=== PATIENT | female | born 1985 | race Two or more races ===

== ENCOUNTER 2024-06-18 00:15 | Inpatient (IN) | payer OTHER ==
[2024-06-17 23:25] VITALS: BP 108/71
[2024-06-18] VITALS (7 sets, daily range): BP systolic 94–108; BP diastolic 60–73; O2SAT 97
[~2024-06-18] VITALS: Ht 160 cm; Wt 59.0 kg
[2024-06-18] MEDS ORDERED: PRENATAL TABLE1 EAC1 (00:34)
[2024-06-18] MEDS ORDERED: RINGERS SOLUTION,LACTATED 1,000 ML IV SCH (00:45)
[2024-06-18] MEDS ORDERED: MAGNESIUM SULFATE IN WATER 500 ML IV SCH (08:45)
[2024-06-18] MEDS ORDERED: BETAMETHASONE ACETATE,SOD PHOS 30 MG/5 ML ML IM SCH (09:00)
[2024-06-18 10:37] LABS: HEMATOCRIT 33.4 % (36.0-45.00); HEMOGLOBIN 11.4 g/dL (12.0-15.00); MEAN CELL VOLUME 96.2 fL (80.00-100.00); MEAN CORPUSCULAR HEMOGLOBIN 32.8 pg (27.00-32.0); MEAN CORPUSCULAR HGB CONC 34.1 g/dl (32.0-36.0); PLATELET COUNT 194 K/uL (150-450); RED BLOOD COUNT 3.47 M/uL (4.00-6.00); RED CELL DISTRIBUTION WIDTH 14.2 % (11.5-14.5)
[2024-06-18 11:12] LABS: INR 0.94; PARTIAL THROMBOPLASTIN TIME 26.2 SECONDS (22.0-34.0); PROTHROMBIN TIME 10.3 SECONDS (9.0-11.5)
[2024-06-18 11:20] LABS: ALBUMIN 2.7 gm/dL (3.4-5.0); BILIRUBIN TOTAL 0.21 mg/dL (0.3-1.2); CALCIUM 8.7 mg/dL (8.5-10.1); CREATININE SERUM 0.32 mg/dL (0.55-1.02); GFR 233.65; GLOBULINA 3.3 G/DL (2.4-3.5); POTASSIUM 3.78 mEq/L (3.5-5.1)
[2024-06-19 03:25] VITALS: BP 94/60
[2024-06-19 07:17] VITALS: BP 108/72
[2024-06-19] MEDS ORDERED: NIFEDIPINE 30 MG TAB.SA.OSM PO SCH (09:00)
[2024-06-19 11:54] VITALS: BP 109/63
[2024-06-19 16:11] VITALS: BP 92/60
[2024-06-19] MEDS ORDERED: hydrOXYzine PAMOATE 25 MG CAPSULE PO SCH (21:00)
[2024-06-20 00:36] VITALS: BP 92/58
[2024-06-20] MEDS ORDERED: MAGNESIUM SULFATE IN WATER 100 ML IV ONE (09:00)
[2024-06-20] MEDS ORDERED: LABETALOL HCL 100 MG/20 ML ML IV PUSH ONE (09:00)
[2024-06-20 09:03] VITALS: BP 91/58
== END 2024-06-20 13:24 | disposition home or self-care (01) | DRG 833 ==
LOC: OBS/DEL 00:15 → LDR 09:01 → OB/GYN 06-19 10:07
PROVIDERS: ADMIT Obstetrics & Gynecology; ATTEND Obstetrics & Gynecology
PROC: 4A1HXCZ Monitoring of Products of Conception, Cardiac Rate, External Approach (ICD-10-PCS; principal; 2024-06-18)
PROC: BY4CZZZ Ultrasonography of Second Trimester, Single Fetus (ICD-10-PCS; 2024-06-18)
PROC: BU4CZZZ Ultrasonography of Uterus and Ovaries (ICD-10-PCS; 2024-06-18)
DX: O46.8X2 Other antepartum hemorrhage, second trimester (principal); Z3A.27 27 weeks gestation of pregnancy

== ENCOUNTER 2024-06-21 12:09 | Outpatient (CLI) | payer OTHER ==
[~2024-06-21 12:09] MED LIST: PRENATAL TABLE1 EAC1
== END 2024-06-21 14:09 | disposition home or self-care (01) ==
LOC: NST 12:09
PROVIDERS: ATTEND Obstetrics & Gynecology Maternal & Fetal Medicine
DX: Z34.82 Encounter for supervision of other normal pregnancy, second trimester (principal)

== ENCOUNTER 2024-09-11 13:30 | Inpatient (IN) | payer OTHER ==
[~2024-09-11] VITALS: Ht 160 cm; Wt 68.9 kg
[2024-09-14] VITALS (9 sets, daily range): BP systolic 115–218; BP diastolic 75–110
[2024-09-14] MEDS ORDERED: RINGERS SOLUTION,LACTATED 1,000 ML IV SCH (05:45)
[2024-09-14] MEDS ORDERED: MORPHINE SULFATE 4 MG/ML CARTRIDGE IV PRN ×2 (05:45→11:15)
[2024-09-14] MEDS ORDERED: hydrALAZINE HCL 20 MG VIAL ONE (06:06)
[2024-09-14] MEDS ORDERED: MAGNESIUM SULFATE IN WATER 4 GM/100 ML PIGGYBACK IV ONE (06:07)
[2024-09-14] MEDS ORDERED: MAGNESIUM SULFATE IN WATER 100 ML IV ONE (06:45)
[2024-09-14] MEDS ORDERED: MAGNESIUM SULFATE IN WATER 500 ML IV SCH (06:45)
[2024-09-14] MEDS ORDERED: hydrALAZINE HCL 20 MG VIAL IV ONE (06:45)
[2024-09-14] MEDS ORDERED: MAGNESIUM SULFATE IN WATER 0.04 GM/ML IV.SOLN IV ONE (06:45)
[2024-09-14 08:02] LABS: BASO % 0.2 % (0.1-1.2); HEMATOCRIT 40.5 % (34.1-44.9); HEMOGLOBIN 13.5 g/dL (11.2-15.7); LYMPH # 1.34 (1.18-3.74); LYMPH % 13.2 % (19.3-53.1); MEAN CORPUSCULAR HEMOGLOBIN 31.2 pg (25.6-32.2); MONO # 0.53 (0.24-0.82); MONO % 5.2 % (4.7-12.5); NEUT # 8.16 (1.56-6.13); NEUT % 80.7 % (34.0-71.1); PLATELET COUNT 169 K/uL (163-369); RED BLOOD COUNT 4.33 M/uL (3.93-5.22); RED CELL DISTRIBUTION WIDTH 15.1 % (11.6-14.4)
[2024-09-14 08:08] LABS: BILIRUBIN TOTAL 0.2 mg/dL (0.3-1.2); CALCIUM 9.5 mg/dL (8.5-10.1); CREATININE SERUM 0.56 mg/dL (0.55-1.02); GFR 122.49; GLOBULINA 3.9 G/DL (2.4-3.5); INR < 0.93; PARTIAL THROMBOPLASTIN TIME 25.4 SECONDS (22.0-34.0); POTASSIUM 4.04 mEq/L (3.5-5.1); PROTHROMBIN TIME 9.9 SECONDS (9.0-11.5); TOTAL PROTEIN 6.9 gm/dL (6.4-8.2)
[2024-09-14] MEDS ORDERED: LIDOCAINE HCL 1% 10ML VIAL ONE (09:15)
[2024-09-14] MEDS ORDERED: ERYTHROMYCIN BASE OPHT 1GM EACH TUBE OP ONE ×2 (09:15→11:45)
[2024-09-14] MEDS ORDERED: OXYTOCIN 20 UNITS/1000ML RL PIGGYBAG IV ONE ×2 (09:15→13:55)
[2024-09-14] MEDS ORDERED: CHLORHEXIDINE GLUCONATE 120 ML BOTTLE TOP ONE ×2 (09:15→11:45)
[2024-09-14] MEDS ORDERED: NALOXONE HCL 0.4 MG/ML AMPUL ONE (09:36)
[2024-09-14] MEDS ORDERED: OXYTOCIN 10 UNITS/ML VIAL ONE (10:12)
[2024-09-14] MEDS ORDERED: OXYTOCIN 1,000 ML IV SCH (11:00)
[2024-09-14] MEDS ORDERED: OxyCODONE HCL 5 MG TABLET (ROXICODONE) PO PRN (11:00)
[2024-09-14] MEDS ORDERED: IBUprofen 400 MG TABLET PO PRN (11:00)
[2024-09-14] MEDS ORDERED: LABETALOL HCL 100 MG TABLET PO SCH (11:06)
[2024-09-14] MEDS ORDERED: ACETAMINOPHEN 325 MG TABLET PO PRN (11:15)
[2024-09-14] MEDS ORDERED: NALOXONE HCL 0.4 MG/ML AMPUL IV ONE (11:45)
[2024-09-14] MEDS ORDERED: NALOXONE HCL 0.4 MG/ML AMPUL IM ONE (11:45)
[2024-09-14] MEDS ORDERED: LIDOCAINE HCL 1% 10ML VIAL IJ ONE (11:45)
[2024-09-14] MEDS ORDERED: IBUprofen 400 MG TABLET PO ONE (15:26)
[2024-09-15 09:05] VITALS: BP 125/80
[2024-09-15 10:05] LABS: BASO % 0.2 % (0.1-1.2); LYMPH # 1.21 (1.18-3.74); LYMPH % 8.8 % (19.3-53.1); MEAN CORPUSCULAR HEMOGLOBIN 30.7 pg (25.6-32.2); MONO # 0.72 (0.24-0.82); MONO % 5.3 % (4.7-12.5); NEUT # 11.61 (1.56-6.13); NEUT % 84.8 % (34.0-71.1); RED CELL DISTRIBUTION WIDTH 15.9 % (11.6-14.4)
[2024-09-15 10:10] LABS: HEMATOCRIT 24.9 % (34.1-44.9)
[2024-09-15 10:11] LABS: PLATELET COUNT 33 K/uL (163-369)
[2024-09-15 10:12] LABS: HEMOGLOBIN 8.3 g/dL (11.2-15.7)
[2024-09-15] MEDS ORDERED: OXYTOCIN 2,000 ML IV SCH (11:00)
[2024-09-15] MEDS ORDERED: METHYLPREDNISOLONE SOD SUCC 40 MG VIAL IV NR (11:45)
[2024-09-15] MEDS ORDERED: SOD FERRIC GLUC COMPLX/SUCROSE 62.5 MG/5 ML AMPUL IV SCH (12:00)
[2024-09-15 14:54] LABS: FIBRINOGEN 334 mg/dL (187.0-446.0); INR < 0.93; PARTIAL THROMBOPLASTIN TIME 24.9 SECONDS (22.0-34.0); PROTHROMBIN TIME 9.9 SECONDS (9.0-11.5)
[2024-09-15 14:55] LABS: D DIMER > 35.20 MG/L
[2024-09-15 15:16] LABS: ALBUMIN 2.3 gm/dL (3.4-5.0); BILIRUBIN TOTAL 0.53 mg/dL (0.3-1.2); CALCIUM 7.8 mg/dL (8.5-10.1); CREATININE SERUM 0.74 mg/dL (0.55-1.02); GFR 88.8; POTASSIUM 4.22 mEq/L (3.5-5.1); TOTAL PROTEIN 5.3 gm/dL (6.4-8.2)
[2024-09-15] MEDS ORDERED: METHYLPREDNISOLONE SOD SUCC 40 MG VIAL IV SCH (18:00)
[2024-09-15 18:06] VITALS: BP 130/80
[2024-09-15 21:00] VITALS: BP 133/81
[2024-09-15 23:46] VITALS: BP 135/86
[2024-09-16 09:04] VITALS: BP 130/78; O2SAT 97
[2024-09-16 16:00] VITALS: BP 137/76; O2SAT 97
[2024-09-16] MEDS ORDERED: FAMOtidine 20 MG TABLET PO SCH (17:00)
[2024-09-16 18:54] LABS: BASO % 0.2 % (0.1-1.2); LYMPH # 0.93 (1.18-3.74); LYMPH % 5.6 % (19.3-53.1); MEAN CORPUSCULAR HEMOGLOBIN 30.6 pg (25.6-32.2); NEUT # 14.49 (1.56-6.13); NEUT % 87.5 % (34.0-71.1); RED BLOOD COUNT 2.68 M/uL (3.93-5.22); RED CELL DISTRIBUTION WIDTH 17.5 % (11.6-14.4)
[2024-09-16 19:00] LABS: HEMATOCRIT 24.7 % (34.1-44.9); HEMOGLOBIN 8.2 g/dL (11.2-15.7); PLATELET COUNT 56 K/uL (163-369)
[2024-09-16 19:10] LABS: INR < 0.93; PARTIAL THROMBOPLASTIN TIME 26.2 SECONDS (22.0-34.0); PROTHROMBIN TIME 10.2 SECONDS (9.0-11.5)
[2024-09-16] MEDS ORDERED: hydrOXYzine PAMOATE 50 MG CAPSULE PO PRN (20:00)
[2024-09-16 20:21] VITALS: BP 160/80
[2024-09-16] MEDS ORDERED: SIMETHICONE 125 MG CAPSULE PO SCH (21:00)
[2024-09-16] MEDS ORDERED: DEXAMETHASONE SODIUM PHOSPHATE 4 MG/ML VIAL IV SCH (21:19)
[2024-09-17] VITALS (7 sets, daily range): BP systolic 116–165; BP diastolic 60–84; O2SAT 85–100
[2024-09-17] MEDS ORDERED: hydrALAZINE HCL 20 MG VIAL IV STA (01:35)
[2024-09-17] MEDS ORDERED: FUROsemide 20 MG/2 ML VIAL IV STA (02:00)
[2024-09-17] MEDS ORDERED: MAGNESIUM SULFATE IN WATER 500 ML IV SCH (03:15)
[2024-09-17] MEDS ORDERED: MAGNESIUM SULFATE IN WATER 100 ML IV ONE (03:15)
[2024-09-17 06:51] LABS: BASO % 0.2 % (0.1-1.2); LYMPH # 1.16 (1.18-3.74); MEAN CORPUSCULAR HEMOGLOBIN 30.4 pg (25.6-32.2); MONO # 1.22 (0.24-0.82); MONO % 6.3 % (4.7-12.5); NEUT # 15.55 (1.56-6.13); NEUT % 79.7 % (34.0-71.1); RED BLOOD COUNT 2.83 M/uL (3.93-5.22); RED CELL DISTRIBUTION WIDTH 17.2 % (11.6-14.4)
[2024-09-17 07:50] LABS: ALBUMIN 2.9 gm/dL (3.4-5.0); BILIRUBIN TOTAL 0.39 mg/dL (0.3-1.2); CALCIUM 8.8 mg/dL (8.5-10.1); CREATININE SERUM 0.63 mg/dL (0.55-1.02); GFR 106.92; GLOBULINA 3.4 G/DL (2.4-3.5); MAGNESIUM 4.3 mg/dL (1.8-2.4); POTASSIUM 3.96 mEq/L (3.5-5.1); TOTAL PROTEIN 6.3 gm/dL (6.4-8.2)
[2024-09-17 08:23] LABS: HEMATOCRIT 25.5 % (34.1-44.9)
[2024-09-17 08:24] LABS: HEMOGLOBIN 8.6 g/dL (11.2-15.7); PLATELET COUNT 71 K/uL (163-369)
[2024-09-17] MEDS ORDERED: PANTOPRAZOLE SODIUM 40 MG/VIAL VIAL IV SCH (17:00)
[2024-09-17] MEDS ORDERED: FUROsemide 20 MG/2 ML VIAL IV SCH (17:00)
[2024-09-17] MEDS ORDERED: POLYETHYLENE GLYCOL 3350 17 GM BLIST.PACK PO SCH (17:00)
[2024-09-17 18:17] LABS: BASO % 0.3 % (0.1-1.2); LYMPH # 1.02 (1.18-3.74); LYMPH % 5.5 % (19.3-53.1); MEAN CORPUSCULAR HEMOGLOBIN 30.5 pg (25.6-32.2); MONO # 1.09 (0.24-0.82); MONO % 5.9 % (4.7-12.5); NEUT # 14.91 (1.56-6.13); NEUT % 80.8 % (34.0-71.1); RED BLOOD COUNT 2.82 M/uL (3.93-5.22); RED CELL DISTRIBUTION WIDTH 17.2 % (11.6-14.4)
[2024-09-17 19:19] LABS: HEMATOCRIT 25.9 % (34.1-44.9); PLATELET COUNT 90 K/uL (163-369)
[2024-09-17 19:21] LABS: HEMOGLOBIN 8.6 g/dL (11.2-15.7)
[2024-09-18 06:15] VITALS: BP 148/84; O2SAT 99
[2024-09-18 07:52] VITALS: BP 142/85; O2SAT 100
[2024-09-18] MEDS ORDERED: ACETAMINOPHEN 500 MG GEL..CAP PO ONE (09:20)
[2024-09-18] MEDS ORDERED: ACETAMINOPHEN 500 MG GEL..CAP PO PRN (09:45)
[2024-09-18 11:11] LABS: BASO % 0.5 % (0.1-1.2); EOS # 0.01 (0.04-0.54); EOS % 0.1 % (0.7-7.0); HEMATOCRIT 30.8 % (34.1-44.9); HEMOGLOBIN 10.1 g/dL (11.2-15.7); LYMPH # 1.88 (1.18-3.74); LYMPH % 9.8 % (19.3-53.1); MEAN CORPUSCULAR HEMOGLOBIN 30.1 pg (25.6-32.2); MONO # 1.44 (0.24-0.82); MONO % 7.5 % (4.7-12.5); NEUT # 14.09 (1.56-6.13); NEUT % 73.4 % (34.0-71.1); PLATELET COUNT 147 K/uL (163-369); RED BLOOD COUNT 3.36 M/uL (3.93-5.22); RED CELL DISTRIBUTION WIDTH 17.2 % (11.6-14.4)
[2024-09-18 11:22] LABS: PH,URINE 7.5 (5.0-8.0); URINE APPEARANCE Cloudy; URINE BILIRRUBIN Negative (NEGATIVE); URINE BLOOD Large; URINE COLOR Orange; URINE GLUCOSE Negative (NEGATIVE); URINE KETONE Negative (NEGATIVE); URINE LEUKOCYTE Moderate; URINE NITRATE Negative
[2024-09-18 11:23] LABS: URINE EPITHELIAL CELLS 45.1 uL (0.0-38.8); URINE RBC 11.9 uL (0.0-20.8); URINE WBC 170.1 uL (0.0-23.2)
[2024-09-18 11:52] LABS: URINE BACTERIA > 9821.5 uL (0.0-1933); URINE CAST 1.32 uL (0.0-1.40); URINE PROTEIN 100 (NEGATIVE)
[2024-09-18 12:26] LABS: CALCIUM 7.6 mg/dL (8.5-10.1); CREATININE SERUM 0.68 mg/dL (0.55-1.02); GFR 97.9; POTASSIUM 3.82 mEq/L (3.5-5.1)
[2024-09-18 12:36] LABS: MAGNESIUM 7.2 mg/dL (1.8-2.4)
[2024-09-18 16:06] VITALS: BP 145/91; O2SAT 100
[2024-09-18 17:00] VITALS: BP 126/92; O2SAT 98
[2024-09-18] MEDS ORDERED: CLONAZEPAM 0.5 MG TABLET PO ONE (21:45)
[2024-09-19] MEDS ORDERED: LABETALOL HCL 200 MG TABLET PO SCH (01:00)
[2024-09-19 01:45] VITALS: BP 120/79; O2SAT 96
[2024-09-19 06:22] LABS: BASO % 0.4 % (0.1-1.2); HEMATOCRIT 29.7 % (34.1-44.9); HEMOGLOBIN 9.8 g/dL (11.2-15.7); LYMPH # 1.33 (1.18-3.74); LYMPH % 8.1 % (19.3-53.1); MEAN CORPUSCULAR HEMOGLOBIN 30.5 pg (25.6-32.2); MONO # 1.03 (0.24-0.82); MONO % 6.3 % (4.7-12.5); NEUT # 12.73 (1.56-6.13); NEUT % 77.6 % (34.0-71.1); PLATELET COUNT 154 K/uL (163-369); RED BLOOD COUNT 3.21 M/uL (3.93-5.22); RED CELL DISTRIBUTION WIDTH 17.1 % (11.6-14.4)
[2024-09-19 06:41] LABS: BILIRUBIN TOTAL 0.35 mg/dL (0.3-1.2); CALCIUM 7.3 mg/dL (8.5-10.1); CREATININE SERUM 0.51 mg/dL (0.55-1.02); GFR 136.45; GLOBULINA 3.5 G/DL (2.4-3.5); POTASSIUM 4.63 mEq/L (3.5-5.1); TOTAL PROTEIN 6.5 gm/dL (6.4-8.2)
[2024-09-19] MEDS ORDERED: NITROFURANTOIN MONOHYD/M-CRYST 100 MG CAPSULE PO SCH (09:00)
[2024-09-19 10:39] VITALS: BP 139/84; O2SAT 97
[2024-09-19 16:21] VITALS: BP 137/82; O2SAT 97
[2024-09-19 19:53] VITALS: BP 116/80; O2SAT 97
[2024-09-20 00:35] VITALS: BP 136/90; O2SAT 96
[2024-09-20 05:27] LABS: BASO % 0.3 % (0.1-1.2); HEMATOCRIT 32.6 % (34.1-44.9); LYMPH # 1.48 (1.18-3.74); LYMPH % 9.6 % (19.3-53.1); MEAN CORPUSCULAR HEMOGLOBIN 30.6 pg (25.6-32.2); MONO # 0.83 (0.24-0.82); MONO % 5.4 % (4.7-12.5); NEUT # 11.67 (1.56-6.13); PLATELET COUNT 182 K/uL (163-369); RED BLOOD COUNT 3.43 M/uL (3.93-5.22); RED CELL DISTRIBUTION WIDTH 17.8 % (11.6-14.4)
[2024-09-20 05:40] LABS: HEMOGLOBIN 10.5 g/dL (11.2-15.7)
[2024-09-20 05:52] LABS: ALBUMIN 3.1 gm/dL (3.4-5.0); BILIRUBIN TOTAL 0.38 mg/dL (0.3-1.2); CALCIUM 8.3 mg/dL (8.5-10.1); CREATININE SERUM 0.52 mg/dL (0.55-1.02); GFR 133.43; GLOBULINA 3.6 G/DL (2.4-3.5); POTASSIUM 4.86 mEq/L (3.5-5.1); TOTAL PROTEIN 6.7 gm/dL (6.4-8.2)
[2024-09-20 08:40] VITALS: BP 141/79; O2SAT 97
[2024-09-20] MEDS ORDERED: PANTOPRAZOLE SODIUM 40 MG TABLET.DR PO SCH (09:00)
== END 2024-09-20 10:14 | disposition home or self-care (01) | DRG 805 ==
LOC: LDR 09-14 05:34 → OB/GYN 09-14 16:31 → ICU 09-17 05:07 → OB/GYN 09-17 13:30 → MEDI 09-18 19:12
PROVIDERS: Internal Medicine Critical Care Medicine; Internal Medicine Hematology & Oncology; Obstetrics & Gynecology; Student in an Organized Health Care Education/Training Program; ADMIT Obstetrics & Gynecology Maternal & Fetal Medicine; ATTEND Obstetrics & Gynecology Maternal & Fetal Medicine
PROC: 10E0XZZ Delivery of Products of Conception, External Approach (ICD-10-PCS; principal; 2024-09-14)
PROC: 0W8NXZZ Division of Female Perineum, External Approach (ICD-10-PCS; 2024-09-14)
PROC: 4A1HXCZ Monitoring of Products of Conception, Cardiac Rate, External Approach (ICD-10-PCS; 2024-09-14)
PROC: 30233N1 Transfusion of Nonautologous Red Blood Cells into Peripheral Vein, Percutaneous Approach (ICD-10-PCS; 2024-09-15)
PROC: 30233K1 Transfusion of Nonautologous Frozen Plasma into Peripheral Vein, Percutaneous Approach (ICD-10-PCS; 2024-09-15)
PROC: B246ZZZ Ultrasonography of Right and Left Heart (ICD-10-PCS; 2024-09-17)
PROC: 4A12X4Z Monitoring of Cardiac Electrical Activity, External Approach (ICD-10-PCS; 2024-09-18)
DX: O69.81X0 Labor and delivery complicated by cord around neck, without compression, not applicable or unspecified (principal); J81.0 Acute pulmonary edema; Z37.0 Single live birth; D62 Acute posthemorrhagic anemia; O99.12 Other diseases of the blood and blood-forming organs and certain disorders involving the immune mechanism complicating childbirth; J81.1 Chronic pulmonary edema; O99.02 Anemia complicating childbirth; O14.24 HELLP syndrome, complicating childbirth; O75.4 Other complications of obstetric surgery and procedures; O12.04 Gestational edema, complicating childbirth; D69.6 Thrombocytopenia, unspecified; O14.94 Unspecified pre-eclampsia, complicating childbirth; O99.52 Diseases of the respiratory system complicating childbirth; O99.344 Other mental disorders complicating childbirth; F32.89 Other specified depressive episodes; R74.01 Elevation of levels of liver transaminase levels; F43.21 Adjustment disorder with depressed mood; Z3A.38 38 weeks gestation of pregnancy; R09.02 Hypoxemia

== ENCOUNTER 2024-09-13 12:32 | Outpatient (CLI) | payer OTHER | END 2024-09-13 14:25 | disposition home or self-care (01) | LOC: NST 12:32 | PROVIDERS: ATTEND Obstetrics & Gynecology Maternal & Fetal Medicine | DX: Z34.83 Encounter for supervision of other normal pregnancy, third trimester (principal) ==